=== PATIENT | female | born 1980 | race Caucasian/White ===

== ENCOUNTER 2018-07-14 23:00 | Emergency (ER) | payer OTHER, MEDICAID ==
[~2018-07-14] VITALS: Ht 175.3 cm; Wt 83.9 kg
[~2018-07-14 23:00] MED LIST: ACETAMINOPHEN-1 EAC1 PO; AMOXICILLIN250 MG PO; BACTRIM DS TAB1 EACH PO; CIPRO500 MG PO; CIPROFLOXACIN500 M1 PO; DOXYCYCLINE 10100 M1 PO; DOXYCYCLINE 10100 MG PO; ERYTHROMYCIN E3.5 G1 OPHTHALMIC; ERYTHROMYCIN E3.5 G2 OP; FIORICET 50-301 EACH PO; FLEXERIL PO; HYDROCODON-ACE1 EAC4; HYDROCODONE-AP1 EAC6 PO; KEFLEX500 MG PO; LANTUS; LIDOCAINE VISC100 M1 SW&SWALLOW; LIPITOR10 MG; MACROBID 100 M100 M1 PO; MACROBID 100 M100 M2 PO; MEDROLDOSEPACK PO; MUCINEX TA600 MG/TA2 PO; MUCINEX600 MG PO; NEURONTIN600 MG; NORCO 5-325 TA1 EACH PO; NOVOLOG MI100 UNIT/M SC; OXYCONTIN10 M1; OXYCONTIN10 M1 PO; PHENERGAN 25 MG25 M1 PO; PRINIVIL10 MG; PYRIDIUM200 MG PO; ROBAXIN 750 MG750 M1 PO; VICODIN 5-3001 EACH PO; WELLBUTRIN 100100 MG PO; XANAX 0.5 MG0.5 MG PO
[2018-07-14 23:53] LABS: ABSOLUTE BASOPHILS 0.1 thou/uL (0.0-0.2); ABSOLUTE EOSINOPHILS 0.5 thou/uL (0.0-0.7); ABSOLUTE LYMPHOCYTES 2.7 thou/uL (0.8-5.3); ABSOLUTE MONOCYTES 0.6 thou/uL (0.0-1.2); ABSOLUTE NEUTROPHILS 3.1 thou/uL (1.6-8.1); BASOPHILS 0.8 %; EOSINOPHILS 6.7 %; HEMATOCRIT 33.4 % (37.0-47.0); HEMOGLOBIN 11.3 gm/dL (12.0-15.0); LYMPHOCYTES 38.7 %; MCH 28.6 pg (26.0-34.0); MCHC 33.8 g/dL (28.0-37.0); MCV 84.8 fL (80.0-100.0); MPV 8.1 fl. (7.2-11.1); NUCLEATED RBCS 0 /100WBC; PLATELET COUNT* 304 thou/uL (150-400); POLYS 44.8 %; RBC 3.94 mil/uL (4.20-5.00); RDW-CV 13.3 % (10.5-14.5); WBC 6.9 thou/uL (4.0-11.0)
[2018-07-15 00:20] LABS: ALBUMIN 2.7 g/dL (3.4-5.0); CALCIUM 8.5 mg/dL (8.5-10.1); CREATININE 0.9 mg/dL (0.6-1.3); POTASSIUM 3.9 mmol/L (3.5-5.1); TOTAL BILIRUBIN 0.1 mg/dL (<0.1-1.0); TOTAL PROTEIN 6.6 g/dL (6.4-8.2)
[2018-07-15 01:40] VITALS: BP 177/106
== END 2018-07-15 01:40 | disposition home or self-care (01) ==
LOC: M.ERS 23:00
PROVIDERS: Emergency Medicine
DX: E11.610 Type 2 diabetes mellitus with diabetic neuropathic arthropathy (principal); G43.909 Migraine, unspecified, not intractable, without status migrainosus; M79.7 Fibromyalgia; F17.210 Nicotine dependence, cigarettes, uncomplicated; Z88.1 Allergy status to other antibiotic agents; Z88.8 Allergy status to other drugs, medicaments and biological substances; Z90.49 Acquired absence of other specified parts of digestive tract; Z98.890 Other specified postprocedural states

== ENCOUNTER → 2018-08-06 | Outpatient (CLI) | payer OTHER, MEDICAID | LOC: M.RAD 12:50 | DX: M25.571 Pain in right ankle and joints of right foot (principal); M89.8X7 Other specified disorders of bone, ankle and foot ==

== ENCOUNTER 2019-07-27 22:24 | Emergency (ER) | payer OTHER, MEDICAID ==
[~2019-07-27] VITALS: Ht 177.8 cm; Wt 86.2 kg
[2019-07-27] MEDS ORDERED: METFORMIN HCL500 M3 PO (22:53)
[2019-07-27] MEDS ORDERED: PRINIVIL5 MG PO (22:54)
[2019-07-27 23:23] LABS: CALCIUM 8.5 mg/dL (8.5-10.1); CREATININE 1.6 mg/dL (0.6-1.3); POTASSIUM 4.6 mmol/L (3.5-5.1)
[2019-07-27 23:42] LABS: URINE BILIRUBIN NEGATIVE (Negative); URINE BLOOD 2+ (Negative); URINE CLARITY CLEAR; URINE COLOR YELLOW; URINE GLUCOSE-RANDOM TRACE (Negative); URINE KETONES NEGATIVE (Negative); URINE LEUKOCYTES-REFLEX NEGATIVE (Negative); URINE NITRITE-REFLEX NEGATIVE (Negative); URINE PROTEIN 3+ (Negative); URINE UROBILINOGEN 0.2 E.U./dl (0.2-1.0)
[2019-07-27 23:57] LABS: CASTS None Seen /LPF (None Seen); SQUAMOUS 4-10 Moderate /LPF (0-3)
[2019-07-27 23:58] LABS: URINE RBC 3-10 Few /HPF (0-2); URINE WBC-REFLEX None Seen /HPF (0-5)
[2019-07-27 23:59] LABS: BACTERIA-REFLEX None Seen /HPF (None Seen); CRYSTALS None Seen /LPF (None Seen)
[2019-07-28] MEDS ORDERED: COMPAZINE10 MG PO ×2 (00:49→00:52)
[2019-07-28 01:05] VITALS: BP 167/88
== END 2019-07-28 01:05 | disposition home or self-care (01) ==
LOC: M.ERS 22:24
PROVIDERS: Emergency Medicine
DX: G43.909 Migraine, unspecified, not intractable, without status migrainosus (principal); E11.9 Type 2 diabetes mellitus without complications; M79.7 Fibromyalgia; F17.210 Nicotine dependence, cigarettes, uncomplicated; Z90.49 Acquired absence of other specified parts of digestive tract; Z89.512 Acquired absence of left leg below knee; Z98.51 Tubal ligation status; Z88.1 Allergy status to other antibiotic agents; Z88.6 Allergy status to analgesic agent; Z88.8 Allergy status to other drugs, medicaments and biological substances

== ENCOUNTER 2019-11-11 20:51 | Emergency (ER) | payer OTHER, MEDICAID ==
[~2019-11-11] VITALS: Ht 175.3 cm; Wt 86.2 kg
[~2019-11-11 20:51] MED LIST changes: +COMPAZINE10 MG PO; +METFORMIN HCL500 M3 PO; +PRINIVIL5 MG PO
[2019-11-11] MEDS ORDERED: TYLENOL WITH CO1 TA1 PO (21:39)
[2019-11-11] MEDS ORDERED: AMOXICILLIN875 MG PO (21:39)
[2019-11-11 21:48] VITALS: BP 187/91
== END 2019-11-11 21:51 | disposition home or self-care (01) ==
LOC: M.ERS 20:51
DX: K06.8 Other specified disorders of gingiva and edentulous alveolar ridge (principal); F17.210 Nicotine dependence, cigarettes, uncomplicated; E11.9 Type 2 diabetes mellitus without complications; G43.909 Migraine, unspecified, not intractable, without status migrainosus; M79.7 Fibromyalgia; Z88.1 Allergy status to other antibiotic agents; Z88.8 Allergy status to other drugs, medicaments and biological substances; Z98.51 Tubal ligation status; Z90.49 Acquired absence of other specified parts of digestive tract

== ENCOUNTER 2020-01-23 20:13 | Inpatient (IN) | payer OTHER, MEDICAID ==
[~2020-01-23] VITALS: Ht 175.3 cm; Wt 93.0 kg
--- NOTE | ~2020-01-23 | CON ---
[address] [address] CONSULTATION Name: ELINOR JUAREZ Room: [address] IN ..#: [id number] Admission: 01/24/20 Attend Phys: Cristofer Mckeon MD Discharge: Date of : 76 Report #: [id number] THIS REPORT FOR: //name// cc: CINDI LEBRON DO Physician not on staff ~ THIS REPORT FOR: //name// NEPHROLOGY CONSULTATION CONSULTING PHYSICIAN: Dr. Mckeon. REASON FOR CONSULTATION: Elevated creatinine and hypertension. HISTORY OF PRESENT ILLNESS: A 39-year-old female with a history of type 2 diabetes for at least 15 years. No underlying known history of kidney disease and comes in with severely high blood pressures. She does not check her blood pressures regularly at home, but apparently had blood pressures in the 220s over 110s when seeing her physician and then developed some headache and blurry vision. She had been taking some ibuprofen 2-3 times a week. No nausea, vomiting, diarrhea, or new medications. She had an admission creatinine of 1.8, blood pressure medication is better now. She was taking Serina with pseudoephedrine for seasonal allergies. REVIEW OF SYSTEMS: Constitutional, psych, heme, eyes, ENT, respiratory, cardiac, GI, , endocrine, all negative except as documented above. PAST MEDICAL HISTORY: Fgt-uiaxock-glcmvyqkg diabetes type 2, hypertension, history of diabetic foot infection with left BKA, history of fibromyalgia, cholecystectomy. FAMILY HISTORY: Positive for diabetes, hypertension. No known kidney disease. SOCIAL HISTORY: Positive for tobacco. CURRENT MEDICATIONS: Reviewed. PHYSICAL EXAMINATION: VITAL SIGNS: Blood pressure 139/75, pulse 70, respirations 18 and temperature 36.8. GENERAL: No acute distress. EYES: Open. EARS: Externally normal. NECK: Supple. CARDIOVASCULAR: Regular rate. LUNGS: No crackles. ABDOMEN: Soft. MUSCULOSKELETAL: Nontender. She has a left BKA [place] [address] CONSULTATION Name: ELINOR JUAREZ Room: [address]#: [id number] Admission: 01/24/20 Attend Phys: Cristofer Mckeon MD Discharge: Date of : 76 Report #: [id number]. PSYCHIATRIC: Awake, alert. LABORATORY DATA: White cell count 8.6, hemoglobin 10.8, platelets 363. Sodium 132, potassium 4.9, chloride 102, bicarbonate 19, BUN 27, creatinine 1.7, glucose 343, calcium 8.4, magnesium 1.7. ASSESSMENT: 1. Acute kidney injury with admission creatinine of 1.8 in the setting of hypertension and ibuprofen with an admission creatinine of 1.8, 07/27/2019 creatinine was 1.6; 07/2018 creatinine was 0.9. 2. Hypertension with systolic blood pressures in the 220 over 110 range. She was taking pseudoephedrine with her Serina as well as ibuprofen. 3. Non-insulin dependent diabetes type 2 for greater than 15 years. No known diabetic retinopathy. 4. History of left diabetic foot ulcer with left BKA. 5. Right lower extremity edema with a negative venous Doppler. PLAN: 1. Avoid pseudoephedrine. 2. Discontinue ibuprofen. 3. Hypomagnesemia. Magnesium replacement has been ordered. She is on metformin. Cautioned metformin use with creatinine greater than 1.4. Would avoid metformin with an EGFR less than 30. 5. Mild hyponatremia. Monitor. 6. Metabolic acidosis with a CO2 of 19. We will monitor. 7. Check U/A. 8. Check renal ultrasound with Doppler. 9. Check urine protein to creatinine ratio. 10. We will need to watch creatinine closely with lisinopril recently being increased. Blood pressure control is better. She will need to monitor blood pressures at home very closely and needs better blood sugar control as well. We will check lab again in the a.m. and follow along with you. Thank you for requesting my opinion in the care and management of this patient. By: [id number] Philomena Donovan MD /rich
--- NOTE | ~2020-01-23 | CON ---
[address] [address] CONSULTATION Name: ELINOR JUAREZ Room: [address] IN .R.#: [id number] Admission: 01/24/20 Attend Phys: Cristofer Mckeon MD Discharge: Date of : 76 Report #: [id number] THIS REPORT FOR: //name// cc: CINDI LEBRON DO Physician not on staff ~ THIS REPORT FOR: //name// DATE OF SERVICE: 01/24/2020 HISTORY OF PRESENT ILLNESS: This is a 39-year-old female patient who was evaluated by me for headache. This patient says that she has a longstanding history of migraine, but migraine happens only once every 6 months. She takes ubhl-lev-vzxadml medications typically anti-inflammatory and she is fine. Whenever her blood pressure becomes uncontrolled, she has more headaches. At this time, she was admitted with very high blood pressure and her headache was worse and she is better after her blood pressure has improved. She thinks she may have had an imaging study long time ago, but she does not remember the results of that. REVIEW OF SYSTEMS: Positive for diabetes. 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 She said she went into septic shock and she was in the hospital at [facility] for 6 weeks. She does have a history of fibromyalgia. She does have multiple musculoskeletal problems. She had left flank pain in the past. She is disabled because of amputation ____. A 14-point review of systems was carried out and that appeared mostly noncontributory. PAST MEDICAL HISTORY: Positive for migraine. FAMILY HISTORY: Positive for migraine, but only ____. SOCIAL HISTORY: She smokes. PHYSICAL EXAMINATION: Indicates neurologically she is alert. She is responsive. She is able to follow simple and complex command. Her speech, concentration, fund of knowledge, and memory are at her baseline. Cranial nerve examination 2-12 looks mostly unremarkable. She does complain of some subjective visual symptom which she says is becoming better. She had an amputation on the left leg, but her sensation is decreased on the right lower extremity. Her reflexes are diminished. Alwhre-ar-dwjb looks unremarkable. I could not have a good look at either fundus in this patient. Pulses are somewhat difficult to feel. There is no meningeal sign. There is no carotid bruit. Cardiorespiratory examination appeared unremarkable. She has no thyroid mass. Her hearing and vision look okay. Blood pressure is 144/69, respirations 16, pulse is 65, temperature is 98. LABORATORY DATA: White count is 8.6. [place] [address] CONSULTATION Name: JUAREZELINOR Brandy Room: [address] IN ..#: [id number] Admission: 01/24/20 Attend Phys: Cristofer Mckeon MD Discharge: Date of : 76 Report #: [id number] IMPRESSION: I think she has an underlying migraine, which became worse with her uncontrolled hypertension. She is doing better in that regard. I will do an MRI just to make sure there is no other etiology going on. If MRI is unremarkable, I do not think we need to do much further testing in this patient and she should follow up as an outpatient. Thank you very much for this referral and if you have any question, please feel free to contact me. By: [id number] Delgado MD /nt
[~2020-01-23 20:13] MED LIST changes: +AMOXICILLIN875 MG PO; -PRINIVIL5 MG PO; +Prinivil; +TYLENOL WITH CO1 TA1 PO
[2020-01-23 20:26] VITALS: BP 207/109
[2020-01-23] MEDS ORDERED: GRALISE600 MG PO (20:48)
[2020-01-23 21:35] LABS: ABSOLUTE BASOPHILS 0.1 thou/uL (0.0-0.2); ABSOLUTE EOSINOPHILS 0.3 thou/uL (0.0-0.7); ABSOLUTE LYMPHOCYTES 2.5 thou/uL (0.8-5.3); ABSOLUTE MONOCYTES 0.6 thou/uL (0.0-1.2); ABSOLUTE NEUTROPHILS 5.2 thou/uL (1.6-8.1); BASOPHILS 0.7 %; EOSINOPHILS 3.5 %; HEMATOCRIT 32.8 % (37.0-47.0); HEMOGLOBIN 10.8 gm/dL (12.0-15.0); LYMPHOCYTES 28.5 %; MCH 28.3 pg (26.0-34.0); MCHC 33.1 g/dL (28.0-37.0); MCV 85.7 fL (80.0-100.0); MPV 8.1 fl. (7.2-11.1); NUCLEATED RBCS 0 /100WBC; PLATELET COUNT* 363 thou/uL (150-400); POLYS 60.3 %; RBC 3.82 mil/uL (4.20-5.00); RDW-CV 13.6 % (10.5-14.5); WBC 8.6 thou/uL (4.0-11.0)
[2020-01-23 21:59] LABS: CALCIUM 8.7 mg/dL (8.5-10.1); CREATININE 1.8 mg/dL (0.6-1.3); MAGNESIUM 1.8 mg/dL (1.8-2.4); POTASSIUM 4.1 mmol/L (3.5-5.1)
[2020-01-24 03:50] VITALS: BP 168/83
[2020-01-24 04:20] VITALS: BP 169/96
[2020-01-24] MEDS ORDERED: FEXOFENADINE-P1 EACH PO (04:44)
[2020-01-24] MEDS ORDERED: METFORMIN HCL500 M3 PO (04:45)
[2020-01-24] MEDS ORDERED: IBU400 MG PO (04:47)
[2020-01-24 08:00] VITALS: BP 144/69
[2020-01-24 13:26] LABS: CALCIUM 8.4 mg/dL (8.5-10.1); CREATININE 1.7 mg/dL (0.6-1.3); MAGNESIUM 1.7 mg/dL (1.8-2.4); POTASSIUM 4.9 mmol/L (3.5-5.1)
[2020-01-24 13:54] VITALS: BP 139/75
[2020-01-24 16:00] VITALS: BP 143/74
[2020-01-24 20:57] VITALS: BP 148/76
[2020-01-25] VITALS: BP 123/63
[2020-01-25 00:55] LABS: URINE BILIRUBIN NEGATIVE (Negative); URINE BLOOD 3+ (Negative); URINE CLARITY CLEAR; URINE COLOR YELLOW; URINE GLUCOSE-RANDOM NEGATIVE (Negative); URINE KETONES NEGATIVE (Negative); URINE LEUKOCYTES 1+ (Negative); URINE NITRITE NEGATIVE (Negative); URINE PROTEIN 3+ (Negative); URINE SPECIFIC GRAVITY 1.015 (1.005-1.030); URINE UROBILINOGEN 0.2 E.U./dl (0.2-1.0)
[2020-01-25 04:00] VITALS: BP 122/67
[2020-01-25 04:43] LABS: CASTS None Seen /LPF (None Seen); SQUAMOUS >10 Many /LPF (0-3)
[2020-01-25 04:45] LABS: CRYSTALS None Seen /LPF (None Seen); URINE RBC 3-10 Few /HPF (0-2)
[2020-01-25 05:34] LABS: ALBUMIN 2.3 g/dL (3.4-5.0); MAGNESIUM 1.8 mg/dL (1.8-2.4); POTASSIUM 4.3 mmol/L (3.5-5.1)
[2020-01-25 08:15] VITALS: BP 129/87
[2020-01-25 13:30] VITALS: BP 175/88
[2020-01-25 17:26] VITALS: BP 159/80
[2020-01-25 20:00] VITALS: BP 169/90
[2020-01-26 00:08] VITALS: BP 174/93
[2020-01-26 04:06] LABS: GLYCOHEMOGLOBIN (HGB A1C) 8.3 % (4.8-5.6)
[2020-01-26 04:21] VITALS: BP 171/95
[2020-01-26 05:08] LABS: ANION GAP 8 mmol/L (7-16); BUN 31 mg/dL (7-18); CALCIUM 8.1 mg/dL (8.5-10.1); CHLORIDE 105 mmol/L (98-107); CHOLESTEROL 245 mg/dL (<200); CO2 23 mmol/L (21-32); CREATININE 1.6 mg/dL (0.6-1.3); GLUCOSE 120 mg/dL (70-99); HDL CHOLESTEROL 34 mg/dL (>40); LDL CHOLESTEROL 172 mg/dL (<100); MAGNESIUM 1.9 mg/dL (1.8-2.4); POTASSIUM 4.3 mmol/L (3.5-5.1); SODIUM 136 mmol/L (136-145); TC:HDL 7.2 Ratio (Not establshd); TRIGLYCERIDE 197 mg/dL (<150); VLDL 39 mg/dL (<40)
[2020-01-26 05:12] LABS: SERUM ASSESSMENT Clear
[2020-01-26 07:50] VITALS: BP 173/77
[2020-01-26] MEDS ORDERED: ASA81BEC PO (10:27)
[2020-01-26] MEDS ORDERED: FELODIPINE 5 MG5 M1 PO (10:27)
[2020-01-26] MEDS ORDERED: NORVASC5 MG PO (10:29)
[2020-01-26 11:48] VITALS: BP 173/77
[2020-01-26 12:46] VITALS: BP 169/90
[2020-01-26 13:08] LABS: ANA INTERPRETATION Positive (Negative)
== END 2020-01-26 13:18 | disposition home or self-care (01) | DRG 304 ==
LOC: M.ERS 20:13 → M.TBA-ER 01-24 01:09 → M.2W 01-24 01:09
PROVIDERS: Emergency Medicine; Internal Medicine; Internal Medicine Nephrology; ADMIT Internal Medicine; ATTEND Internal Medicine
DX: I16.0 Hypertensive urgency (principal); N17.0 Acute kidney failure with tubular necrosis; G43.909 Migraine, unspecified, not intractable, without status migrainosus; T50.905A Adverse effect of unspecified drugs, medicaments and biological substances, initial encounter; I70.1 Atherosclerosis of renal artery; E11.65 Type 2 diabetes mellitus with hyperglycemia; Z20.828 Contact with and (suspected) exposure to other viral communicable diseases; Z90.49 Acquired absence of other specified parts of digestive tract; Z88.1 Allergy status to other antibiotic agents; Z88.8 Allergy status to other drugs, medicaments and biological substances; Z83.3 Family history of diabetes mellitus; Z82.49 Family history of ischemic heart disease and other diseases of the circulatory system; Y92.89 Other specified places as the place of occurrence of the external cause; Z23 Encounter for immunization

== ENCOUNTER 2020-05-18 16:59 | Emergency (ER) | payer OTHER, MEDICAID ==
[~2020-05-18] VITALS: Ht 175.3 cm; Wt 97.5 kg
[~2020-05-18 16:59] MED LIST changes: +ASA81BEC PO; +FELODIPINE 5 MG5 M1 PO; +FEXOFENADINE-P1 EACH PO; +GRALISE600 MG PO; +IBU400 MG PO; +NORVASC5 MG PO
[2020-05-18 17:30] LABS: ABSOLUTE BASOPHILS 0.2 thou/uL (0.0-0.2); ABSOLUTE EOSINOPHILS 0.3 thou/uL (0.0-0.7); ABSOLUTE LYMPHOCYTES 2.2 thou/uL (0.8-5.3); ABSOLUTE MONOCYTES 0.6 thou/uL (0.0-1.2); ABSOLUTE NEUTROPHILS 8.2 thou/uL (1.6-8.1); BASOPHILS 1.3 %; EOSINOPHILS 2.5 %; HEMATOCRIT 35.1 % (37.0-47.0); HEMOGLOBIN 11.3 gm/dL (12.0-15.0); LYMPHOCYTES 18.9 %; MCH 26.4 pg (26.0-34.0); MCHC 32.2 g/dL (28.0-37.0); MCV 82.1 fL (80.0-100.0); MONOCYTES 5.4 %; MPV 7.6 fl. (7.2-11.1); NUCLEATED RBCS 0 /100WBC; PLATELET COUNT* 529 thou/uL (150-400); POLYS 71.9 %; RBC 4.28 mil/uL (4.20-5.00); RDW-CV 15.1 % (10.5-14.5); WBC 11.4 thou/uL (4.0-11.0)
[2020-05-18 17:37] LABS: CALCIUM 8.8 mg/dL (8.5-10.1); CREATININE 2.1 mg/dL (0.6-1.3); POTASSIUM 5.2 mmol/L (3.5-5.1)
[2020-05-18 17:50] LABS: ALBUMIN 2.6 g/dL (3.4-5.0); TOTAL BILIRUBIN 0.2 mg/dL (<0.1-1.0); TOTAL PROTEIN 7.2 g/dL (6.4-8.2)
[2020-05-18 18:37] LABS: URINE BILIRUBIN NEGATIVE (Negative); URINE BLOOD 2+ (Negative); URINE CLARITY CLEAR; URINE COLOR YELLOW; URINE GLUCOSE-RANDOM 2+ (Negative); URINE KETONES NEGATIVE (Negative); URINE LEUKOCYTES-REFLEX NEGATIVE (Negative); URINE NITRITE-REFLEX NEGATIVE (Negative); URINE PROTEIN 3+ (Negative); URINE SPECIFIC GRAVITY 1.025 (1.005-1.030); URINE UROBILINOGEN 0.2 E.U./dl (0.2-1.0)
[2020-05-18 18:50] LABS: ALBUMIN 2.7 g/dL (3.4-5.0); ALKALINE PHOSPHATASE 110 U/L (46-116); AMYLASE 77 U/L (25-115); DIRECT BILIRUBIN 0.1 mg/dL (<0.1-0.3); LIPASE 327 U/L (73-393); NT-PRO BRAIN NAT PEPTIDE 1047 pg/mL (<300); SGOT 11 U/L (15-37); SGPT 16 U/L (30-65); TOTAL BILIRUBIN 0.2 mg/dL (<0.1-1.0); TOTAL PROTEIN 7.3 g/dL (6.4-8.2)
[2020-05-18 18:56] LABS: SQUAMOUS >10 Many /LPF (0-3)
[2020-05-18 18:57] LABS: HYALINE CASTS 0-3 Few /LPF (None Seen)
[2020-05-18 18:58] LABS: CRYSTALS None Seen /LPF (None Seen); MUCUS None Seen strn/LPF (None Seen); URINE RBC 3-10 Few /HPF (0-2); URINE WBC-REFLEX 6-15 Few /HPF (0-5)
[2020-05-18 19:02] LABS: BE -6.6 mmol/L (-2 to +3); PCO2 VENOUS 48.2 mmHg (41.0-51.0); PO2 VENOUS 37.3 mmHg (35.0-45.0)
[2020-05-18] MEDS ORDERED: ZOFRAN ODT4 MG PO (20:22)
[2020-05-18] MEDS ORDERED: DOXYCYCLINE 10100 MG PO (20:22)
[2020-05-18 20:46] VITALS: BP 162/70
--- NOTE | 2020-05-19 08:54 | EKG ---
[place] [address] ELECTROCARDIOGRAM REPORT Name: ELINOR JUAREZ Room: [facility]#: [id number] Admission: 05/18/20 Attend Phys: Discharge: 05/18/20 Date of : 76 Date of Service: 05/18/201815 Report #: [id number] THIS REPORT FOR: //name// [facility] ED Test Date: 2020-05-18 Test Time: 18:16:24 Pat Name: ELINOR JUAREZ Department: Room: Gender: F [employer]: [employer] : 1980 Requested By: Israel Juarez Order Number: [id number] MD: Jamari Hare Measurements Intervals [place] Rate: 71 P: 68 RI: 163 QRS: 54 QRSD: 89 T: 88 QT: 373 QTc: 406 Interpretive Statements Sinus rhythm Probable left atrial enlargement ST elev, probable normal early repol pattern Compared to ECG 10/13/2016 22:43:05 no change Electronically Signed On 05-19-2020 8:53:51 CLASSIFICATION INSPECTOR by Jamari Hare [email or web address] <ELECTRONICALLY SIGNED> By: Jamari Hare MD, [facility] 05/19/20 [id number] Jamari Hare MD, [facility] /EPI
== END 2020-05-18 20:46 | disposition still patient (30) ==
LOC: M.ERS 16:59
PROVIDERS: Emergency Medicine; Physician Assistant
DX: E86.0 Dehydration (principal); E11.65 Type 2 diabetes mellitus with hyperglycemia; E87.5 Hyperkalemia; N28.9 Disorder of kidney and ureter, unspecified; G43.909 Migraine, unspecified, not intractable, without status migrainosus; M79.7 Fibromyalgia; N39.0 Urinary tract infection, site not specified; K52.9 Noninfective gastroenteritis and colitis, unspecified; F17.210 Nicotine dependence, cigarettes, uncomplicated; Z88.1 Allergy status to other antibiotic agents; Z88.6 Allergy status to analgesic agent; Z79.899 Other long term (current) drug therapy; Z79.82 Long term (current) use of aspirin